=== PATIENT | female | born 1955 | race Caucasian/White ===

== ENCOUNTER 2018-07-26 21:04 | Emergency (ER) | payer MEDICAID ==
[2018-07-26 21:27] LABS: BILIRUBIN,URINE NEGATIVE (NEGATIVE); GLUCOSE, URINE (UA) NEGATIVE (NEGATIVE); KETONES,URINE (UA) NEGATIVE (NEGATIVE); LEUKOCYTE ESTERASE, URINE SMALL (NEGATIVE); NITRITE,URINE NEGATIVE (NEGATIVE); OCCULT BLOOD,URINE LARGE (NEGATIVE); PH,URINE 6.5 PH (5.0-7.5); PROTEIN,URINE 100 mg/dL (NEGATIVE); UROBILINOGEN,URINE 0.2 (NORMAL) E.U./dL (NORMAL)
[2018-07-26 21:35] LABS: BACTERIA,URINE None Seen /HPF (None Seen); CLARITY,URINE HAZY (CLEAR); RBC,URINE 0-5 /HPF (0-5); SQUAMOUS EPITHELIAL CELL,UR NONE SEEN (<= Few)
[2018-07-26] MEDS ORDERED: cephALEXin 250 MG CAPSULE PO STA (22:10)
--- NOTE | 2018-07-26 22:13 | ED Physician Documentation ---
History of Present Illness - Stated complaint Stated Complaint: FEMALE - Chief complaint Chief Complaint: UTI - Additonal information Additional information: 63-year-old female presents the emergency department with dysuria and hematuria. No fevers or chills. No flank pain. Symptoms are described as moderate. The patient reports frequency and suprapubic cramping. No triggering factors. No relieving factors. 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 HEENT: Tonsil/Adenoidectomy - Present Medications Home Medications: Ambulatory Orders Medication Instructions Recorded Confirmed Cephalexin [Keflex] 500 mg PO BID #14 capsule 07/26/18 - Allergies Allergies/Adverse Reactions: Allergies Allergy/AdvReac Type Severity Reaction Status Date / Time Sulfa (Sulfonamide Allergy Unknown Verified 07/26/18 21:24 Antibiotics) - Social History Does the pt smoke?: No Smoking Status: Never smoker Does the pt drink ETOH?: No Does the pt have substance abuse?: No - Immunizations Immunizations are current?: Yes - POLST Patient has POLST: No PD ED PE NORMAL - General General: Alert and oriented X 3, No acute distress - HEENT HEENT: Atraumatic, PERRL, EOMI - Cardiac Cardiac: RRR, Strong equal pulses - Respiratory Respiratory: No respiratory distress - Back Back: No CVA TTP - Neuro Neuro: Alert and oriented X 3, Normal speech Results - Vitals Vitals: Vital Signs - 24 hr 07/26/18 21:21 Temperature 36.6 C Heart Rate 69 Respiratory 17 Rate Blood Pressure 168/67 H O2 Saturation 96 Oxygen O2 Source Room air - Labs Labs: Laboratory Tests 07/26/18 21:23 Urine Color LT RED Urine Clarity HAZY Urine pH 6.5 Ur Specific [place] <=1.005 Urine Protein 100 H Urine Glucose (UA) NEGATIVE Urine Ketones NEGATIVE Urine Occult Blood LARGE H Urine Nitrite NEGATIVE Urine Bilirubin NEGATIVE Urine Urobilinogen 0.2 (NORMAL) Ur Leukocyte Esterase SMALL H Urine RBC 0-5 Urine WBC >25 H Ur Squamous Epith Cells NONE SEEN Urine Bacteria None Seen Ur Microscopic Review INDICATED Urine Culture Comments INDICATED PD MEDICAL DECISION MAKING - ED course ED course: The patient appears to have a simple urinary tract infection, there is no evidence of pyelonephritis at this point. The patient appears appropriate for outpatient management with oral antibiotics. I discussed the plan with the p atient who understands and agrees. I discussed warning signs and recommended returning to the emergency department for any worsening or any concerns. Departure - Departure Disposition: Home, Self Care Clinical Impression: Acute cystitis Qualifiers: Hematuria presence: with hematuria Qualified Code(s): N30.01 - Acute cystitis with hematuria Condition: Good Instructions: ED UTI Cystitis Female, ED Infec Bladder Female Follow-Up: [facility] [Provider Group] (call to schedule a follow up appointment ) Prescriptions: Cephalexin [Keflex] 500 mg PO BID #14 capsule Comments: Please return to the emergency department for worsening symptoms or any concerns
[2018-07-26 22:18] VITALS: BP 150/68
== END 2018-07-26 22:17 | disposition home or self-care (01) ==
LOC: ED 21:04
DX: N30.01 Acute cystitis with hematuria (principal)
CPT/HCPCS: 81001; 87086; 99283; A9270; 81003

== ENCOUNTER 2018-08-12 18:27 | Emergency (ER) | payer MEDICAID ==
--- NOTE | 2018-08-12 20:12 | ED Physician Documentation ---
PD HPI DYSPNEA - Stated complaint Stated Complaint: COUGH/SOA - Chief complaint Chief Complaint: Resp - History obtained from History obtained from: Patient - History of Present Illness Timing - onset: How many days ago (2) Timing - details: Gradual onset, Intermittant, Waxing and waning Pain level now: 1 Improved by: Sitting up Worsened by: Laying flat, Coughing Associated symptoms: Cough. No: Fever, Hemoptysis, Wheezing, Chest pain / discomfort, Bilateral edema, Unilateral edema Recently seen: Emergency Dept - Additional information Additional information: T+R few weeks ago for UTI; at that time, she had recently finished z-pack that had been prescribed at an urgent care clinic for URI. On previous ED visit few weeks ago, she was prescribed keflex for UTI. Patient presents at this time due to recurrence of the symptoms she had approximately 1 month ago: cough (intermittently productive of clear, white sputum) that is worse when lying supine. Also has dyspnea (with coughing) and bilaterally sinus congestion. Symptoms returned 2 days ago Review of Systems Nose: reports: Congestion, Sinus pressure / pain Throat: reports: Sore throat Cardiac: reports: Reviewed and negative Respiratory: reports: Dyspnea, Cough. 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 HEENT: Tonsil/Adenoidectomy - Present Medications Home Medications: Ambulatory Orders Medication Instructions Recorded Confirmed Aspirin EC [Ecotrin] 08/12/18 08/12/18 Benzonatate 200 mg PO TID PRN #20 capsule 08/12/18 Hydroxychloroquine [Plaquenil] 08/12/18 Levothyroxine [Synthroid] 08/12/18 Losartan/Hydrochlorothiazide 08/12/18 08/12/18 [Losartan-Hctz 100-12.5 mg Tab] Omeprazole Magnesium [Prilosec] 08/12/18 amLODIPine [Norvasc] 08/12/18 predniSONE [Prednisone] 40 mg PO DAILY #6 tablet 08/12/18 - Allergies Allergies/Adverse Reactions: Allergies Allergy/AdvReac Type Severity Reaction Status Date / Time Sulfa (Sulfonamide Allergy Unknown Verified 07/26/18 21:24 Antibiotics) - Social History Does the pt smoke?: No Smoking Status: Never smoker Does the pt drink ETOH?: No Does the pt have substance abuse?: No - Immunizations Immunizations are current?: Yes - POLST Patient has POLST: No PD ED PE NORMAL - Vitals Vital signs reviewed: Yes - General General: Alert and oriented X 3, No acute distress (frequent coughing during H+P), Well developed/nourished - HEENT HEENT: Moist mucous membranes, Pharynx benign - Neck Neck: Supple, no meningeal sign - Cardiac Cardiac: RRR, No murmur - Respiratory Respiratory: No respiratory distress, Other (bilateral course expiratory breath sounds) Results - Vitals Vitals: Vital Signs - 24 hr 08/12/18 08/12/18 08/12/18 18:43 20:47 21:39 Temperature 37.1 C Heart Rate 73 79 66 Respiratory 16 19 Rate Blood Pressure 137/55 H 132/74 H O2 Saturation 97 97 Oxygen O2 Source Room air - Rads (name of study) chest xray Radiology: Prelim report reviewed, See rad report PD MEDICAL DECISION MAKING - ED course Complexity details: reviewed results, re-evaluated patient, considered differential, d/w patient ED course: patient reported improvement after duoneb and lungs have improved aeration with mild residual bilateral course expiratory breath sounds Departure - Departure Disposition: 01 Home, Self Care Clinical Impression: Bronchitis, acute, with bronchospasm Condition: Good Instructions: ED Bronchitis Asthmatic Follow-Up: [facility] [Provider Group] [facility] [Provider Group] Prescriptions: Benzonatate 200 mg PO TID PRN #20 capsule PRN Reason: Cough predniSONE [Prednisone] 40 mg PO DAILY #6 tablet Discharge Date/Time: 08/12/18 21:40
[2018-08-12] MEDS ORDERED: BENZONATATE 100 MG CAPSULE PO STA (20:31)
[2018-08-12] MEDS ORDERED: predniSONE 20 MG TABLET PO STA (20:31)
[2018-08-12] MEDS ORDERED: IPRATROPIUM/ALBUTEROL 3 ML NEB INH STA (20:31)
--- NOTE | 2018-08-12 20:38 | XRAY Report ---
Reason: cough x1 month Procedure Date: 08/12/2018 Accession Number: [id number] / [id number] Procedure: XR - Chest 2 View X-Ray CPT Code: 73379 FULL RESULT: EXAM: CHEST RADIOGRAPHY EXAM DATE: 08/12/2018 07:53 PM. CLINICAL HISTORY: Cough. COMPARISON: None. TECHNIQUE: 2 views. FINDINGS: Lungs/Pleura: No focal opacities evident. No pleural effusion. No pneumothorax. Normal volumes. Mediastinum: Heart and mediastinal contours are unremarkable. Other: None. IMPRESSION: Normal 2-view chest radiography. RADIA
[2018-08-12 21:40] VITALS: BP 132/74
== END 2018-08-12 21:40 | disposition home or self-care (01) ==
LOC: ED 18:27
DX: J20.9 Acute bronchitis, unspecified (principal); I10 Essential (primary) hypertension; E03.9 Hypothyroidism, unspecified
CPT/HCPCS: 71046; 94640; 94664; 99283; A9270; J7512

== ENCOUNTER 2018-08-18 10:54 | Emergency (ER) | payer MEDICAID ==
[2018-08-18] MEDS ORDERED: SODIUM CHLORIDE 0.9% 1,000 ML IV ONE (11:14)
[2018-08-18 11:30] LABS: BILIRUBIN,URINE NEGATIVE (NEGATIVE); GLUCOSE, URINE (UA) NEGATIVE (NEGATIVE); KETONES,URINE (UA) NEGATIVE (NEGATIVE); LEUKOCYTE ESTERASE, URINE MODERATE (NEGATIVE); NITRITE,URINE NEGATIVE (NEGATIVE); OCCULT BLOOD,URINE LARGE (NEGATIVE); PROTEIN,URINE 100 mg/dL (NEGATIVE); UROBILINOGEN,URINE 0.2 (NORMAL) E.U./dL (NORMAL)
[2018-08-18] MEDS ORDERED: KETOROLAC 60 MG/2 ML VIAL IVP STA (11:33)
[2018-08-18 11:34] LABS: CLARITY,URINE SL. CLOUDY (CLEAR)
--- NOTE | 2018-08-18 11:36 | ED Physician Documentation ---
History of Present Illness - Stated complaint Stated Complaint: DIARRHEA - Chief complaint Chief Complaint: Abd Pain - Additonal information Additional information: hx from pt 63 f to ER with urinary sx and R flank pain nausea worsening for 4 days had UTI 3 wk ago txed with keflex no fever chills but feels generally ill has lupus on plaquinol and prednisone Review of Systems Constitutional: reports: Fatigue. denies: Fever, Chills Cardiac: denies: Chest pain / pressure Respiratory: denies: Dyspnea, Cough GI: reports: Abdominal Pain, Nausea. 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 HEENT: Tonsil/Adenoidectomy - Present Medications Home Medications: Ambulatory Orders Medication Instructions Recorded Confirmed Aspirin EC [Ecotrin] 08/12/18 08/12/18 Benzonatate 200 mg PO TID PRN #20 capsule 08/12/18 Hydroxychloroquine [Plaquenil] 08/12/18 Levothyroxine [Synthroid] 08/12/18 Losartan/Hydrochlorothiazide 08/12/18 08/12/18 [Losartan-Hctz 100-12.5 mg Tab] Omeprazole Magnesium [Prilosec] 08/12/18 amLODIPine [Norvasc] 08/12/18 Cephalexin [Keflex] 500 mg PO Q6H #40 capsule 08/18/18 Ibuprofen [Motrin] 400 mg PO Q6H PRN #20 tablet 08/18/18 Ondansetron Odt [Zofran] 4 mg TL Q6H PRN #10 tablet 08/18/18 - Allergies Allergies/Adverse Reactions: Allergies Allergy/AdvReac Type Severity Reaction Status Date / Time Sulfa (Sulfonamide Allergy Unknown Verified 08/18/18 11:06 Antibiotics) - Social History Does the pt smoke?: No Smoking Status: Never smoker Does the pt drink ETOH?: No Does the pt have substance abuse?: No - Immunizations Immunizations are current?: Yes - POLST Patient has POLST: No PD ED PE NORMAL - Vitals Vital signs reviewed: Yes - General General: Alert and oriented X 3 - HEENT HEENT: PERRL - Neck Neck: Supple, no meningeal sign - Cardiac Cardiac: RRR - Respiratory Respiratory: No respiratory distress, Clear bilaterally - Abdomen Abdomen: Soft, Other (mod TTP entire right abd s rebound or guarding) - Back Back: No CVA TTP (R CVA TTP) - Derm Derm: Normal color - Neuro Neuro: Alert and oriented X 3 Results - Vitals Vitals: Vital Signs - 24 hr 08/18/18 08/18/18 11:00 13:54 Temperature 36.8 C 36.6 C Heart Rate 77 58 L Respiratory 16 16 Rate Blood Pressure 166/76 H 133/65 H O2 Saturation 96 98 Oxygen O2 Source Room air - Labs Labs: Laboratory Tests 08/18/18 08/18/18 08/18/18 11:25 11:40 11:40 WBC 10.2 RBC 4.35 Hgb 13.1 Hct 37.8 MCV 86.9 MCH 30.1 MCHC 34.7 RDW 13.5 Plt Count 282 MPV 8.5 Neut # (Auto) 7.2 H Lymph # (Auto) 1.8 Edmunds # (Auto) 0.9 Eos # (Auto) 0.2 Baso # (Auto) 0.1 Absolute Nucleated RBC 0.01 Nucleated RBC % 0.1 Sodium 139 Potassium 3.2 L Chloride 103 Carbon Dioxide 27 Anion Gap 9.0 BUN 18 Creatinine 0.7 Estimated GFR (MDRD) 85 L Glucose 115 H Calcium 8.7 Total Bilirubin 1.4 H AST 15 ALT 19 Alkaline Phosphatase 61 Total Protein 6.5 L Albumin 3.7 Globulin 2.8 Albumin/Globulin Ratio 1.3 Lipase 24 Urine Color YELLOW Urine Clarity SL. CLOUDY Urine pH 6.0 Ur Specific [place] >=1.030 H Urine Protein 100 H Urine Glucose (UA) NEGATIVE Urine Ketones NEGATIVE Urine Occult Blood LARGE H Urine Nitrite NEGATIVE Urine Bilirubin NEGATIVE Urine Urobilinogen 0.2 (NORMAL) Ur Leukocyte Esterase MODERATE H Urine RBC 11-25 H Urine WBC >25 H Ur Squamous Epith Cells FEW Squamous Urine Bacteria Few Ur Microscopic Review INDICATED Urine Culture Comments INDICATED - Rads (name of study) CT AP Radiology: See rad report (no stones, subtle fat stranding without any acute infection or inflammatory source, no AAA, no CBD stones or dilation per rad read) PD MEDICAL DECISION MAKING - ED course ED course: hematuria + infection so got CT - no stones bili noted but pt s/p carrie and no CBD stones noted will tx for pyelo Departure - Departure Disposition: 01 Home, Self Care Clinical Impression: Pyelonephritis Condition: Good Instructions: ED Kidney Infec Female Prescriptions: Cephalexin [Keflex] 500 mg PO Q6H #40 capsule Ibuprofen [Motrin] 400 mg PO Q6H PRN #20 tablet PRN Reason: Pain Ondansetron Odt [Zofran] 4 mg TL Q6H PRN #10 tablet PRN Reason: Nausea / Vomiting Comments: The CT scan did not show any kidney stones or other acute process. The urine test definitely indicates an infection. We gave you a dose of IV antibiotics in the ER and I have prescribed keflex again since that worked for you before. A urine culture will be run and you will be called if it indicates different antibiotics are needed Discharge Date/Time: 08/18/18 14:17
[2018-08-18 11:41] LABS: BACTERIA,URINE Few /HPF (None Seen); SQUAMOUS EPITHELIAL CELL,UR FEW Squamous (<= Few)
[2018-08-18 11:54] LABS: BASOPHILS # (AUTO) 0.1 10^3/uL (0.0-0.1); BASOPHILS % (AUTO) 0.8 %; EOSINOPHILS # (AUTO) 0.2 10^3/uL (0.0-0.7); EOSINOPHILS % (AUTO) 1.9 %; HGB - HEMOGLOBIN 13.1 g/dL (12.0-16.0); LYMPHOCYTES # (AUTO) 1.8 10^3/uL (1.5-3.5); LYMPHOCYTES % (AUTO) 17.9 %; MEAN CORPUSCULAR HEMOGLOBIN 30.1 pg (27.0-31.0); MEAN CORPUSCULAR HGB CONC 34.7 g/dL (32.0-36.0); MEAN CORPUSCULAR VOLUME 86.9 fL (81.0-99.0); MEAN PLATELET VOLUME 8.5 fL (7.9-10.8); MONOCYTES # (AUTO) 0.9 10^3/uL (0.0-1.0); MONOCYTES % (AUTO) 8.4 %; NEUTROPHILS # (AUTO) 7.2 10^3/uL (1.5-6.6); PLT - PLATELET COUNT 282 10^3/uL (130-450); RED BLOOD COUNT 4.35 10^6/uL (4.20-5.40); RED CELL DISTRIBUTION WIDTH 13.5 % (12.0-15.0); WHITE BLOOD COUNT 10.2 x10^3/uL (4.8-10.8)
[2018-08-18 12:07] LABS: ALBUMIN 3.7 g/dL (3.2-5.5); ALBUMIN/GLOBULIN RATIO 1.3 (1.0-2.2); BILIRUBIN,TOTAL 1.4 mg/dL (0.2-1.0); CALCIUM 8.7 mg/dL (8.5-10.3); CREATININE 0.7 mg/dL (0.4-1.0); TOTAL PROTEIN 6.5 g/dL (6.7-8.2)
--- NOTE | 2018-08-18 12:07 | CT Report ---
Reason: right flank pain Procedure Date: 08/18/2018 Accession Number: [id number] / [id number] Procedure: CT - Abdomen/Pelvis W/O CPT Code: FULL RESULT: EXAM: CT ABDOMEN AND PELVIS EXAM DATE: 08/18/2018 11:52 AM. CLINICAL HISTORY: Right flank pain. COMPARISONS: None. TECHNIQUE: Routine helical CT imaging was performed through the abdomen and pelvis. IV contrast: None. Enteric contrast: No. Reconstructions: Coronal and sagittal. In accordance with CT protocol optimization, one or more of the following dose reduction techniques were utilized for this exam: automated exposure control, adjustment of mA and/or KV based on patient size, or use of iterative reconstructive technique. FINDINGS: Lung Bases: Unremarkable. Liver: Normal. No masses. Gallbladder/Bile Ducts: Status post cholecystectomy. Spleen: Normal. Pancreas: Normal. Adrenal Glands: Normal. Kidneys: Normal. No masses or hydronephrosis. Peritoneal Cavity/Bowel: There is subtle peritoneal fat stranding surrounding the mesentery, more so on the right as well as in the distribution of the pancreas head without focal findings. There is diverticulosis without diverticulitis. A density seen in the region of the second portion of the duodenum/biliary sphincter is felt to be within the small bowel rather than solar manufacturer's representative of choledocholithiasis. No benjamín free fluid, free air or adenopathy. No masses or acute inflammatory process. Pelvic Organs: Normal. The bladder and visualized pelvic organs are within normal limits. Vasculature: Atherosclerosis without abdominal aneurysm. Bones: No aggressive osseous lesions. Other: None. IMPRESSION: Subtle peritoneal fat stranding is a nonspecific finding, possibly self-limited mesenteritis. RADIA
[2018-08-18] MEDS ORDERED: cefTRIAXone 1 GM in SODIUM CHLORIDE 0.9% MINIBAG 100 ML IV STA (13:12)
[2018-08-18 13:56] VITALS: BP 133/65
== END 2018-08-18 14:17 | disposition home or self-care (01) ==
LOC: ED 10:54
DX: N12 Tubulo-interstitial nephritis, not specified as acute or chronic (principal); E03.9 Hypothyroidism, unspecified
CPT/HCPCS: 36415; 74176; 80053; 81001; 81003; 83690; 85025; 87077; 87086; 87181; 96361; 96365; 96375; 99283; 99284

== ENCOUNTER 2018-08-31 10:56 | Outpatient (CLI) | payer MEDICAID ==
[2018-08-31 11:43] LABS: BASOPHILS # (AUTO) 0.1 10^3/uL (0.0-0.1); BASOPHILS % (AUTO) 0.9 %; EOSINOPHILS # (AUTO) 0.1 10^3/uL (0.0-0.7); HGB - HEMOGLOBIN 13.1 g/dL (12.0-16.0); LYMPHOCYTES % (AUTO) 32.9 %; MEAN CORPUSCULAR HEMOGLOBIN 29.8 pg (27.0-31.0); MEAN CORPUSCULAR HGB CONC 34.3 g/dL (32.0-36.0); MEAN CORPUSCULAR VOLUME 87.1 fL (81.0-99.0); MONOCYTES # (AUTO) 0.5 10^3/uL (0.0-1.0); MONOCYTES % (AUTO) 8.8 %; NEUTROPHILS # (AUTO) 3.4 10^3/uL (1.5-6.6); NEUTROPHILS % (AUTO) 55.4 %; PLT - PLATELET COUNT 244 10^3/uL (130-450); RED CELL DISTRIBUTION WIDTH 13.5 % (12.0-15.0); WHITE BLOOD COUNT 6.2 x10^3/uL (4.8-10.8)
[2018-08-31 11:58] LABS: BILIRUBIN,URINE NEGATIVE (NEGATIVE); GLUCOSE, URINE (UA) NEGATIVE (NEGATIVE); KETONES,URINE (UA) NEGATIVE (NEGATIVE); LEUKOCYTE ESTERASE, URINE TRACE (NEGATIVE); NITRITE,URINE NEGATIVE (NEGATIVE); OCCULT BLOOD,URINE SMALL (NEGATIVE); PH,URINE 5.5 PH (5.0-7.5); PROTEIN,URINE 30 mg/dL (NEGATIVE); UROBILINOGEN,URINE 0.2 (NORMAL) E.U./dL (NORMAL)
[2018-08-31 11:59] LABS: CLARITY,URINE CLEAR (CLEAR)
[2018-08-31 12:09] LABS: BACTERIA,URINE Few /HPF (None Seen); RBC,URINE 0-5 /HPF (0-5); SQUAMOUS EPITHELIAL CELL,UR FEW Squamous (<= Few)
[2018-08-31 12:17] LABS: ALBUMIN 3.8 g/dL (3.2-5.5); ALBUMIN/GLOBULIN RATIO 1.3 (1.0-2.2); ALKALINE PHOSPHATASE 59 IU/L (42-121); ALT ALANINE AMINOTRANSFERASE 18 IU/L (10-60); AST ASPARTATE AMINOTRANSFERASE 17 IU/L (10-42); BILIRUBIN,TOTAL 1.3 mg/dL (0.2-1.0); BUN - BLOOD UREA NITROGEN 12 mg/dL (6-20); CALCIUM 9.1 mg/dL (8.5-10.3); CARBON DIOXIDE - CO2 29 mmol/L (21-32); CHLORIDE 102 mmol/L (101-111); CHOL/HDL RATIO 4.9 (<4.4); CHOLESTEROL 199 mg/dL; CREATININE 0.6 mg/dL (0.4-1.0); GFR - MDRD 102 (>89); GLUCOSE 103 mg/dL (70-100); HDL CHOLESTEROL 41 mg/dL; LDL CHOLESTEROL,CALCULATED 133 mg/dL; LDL/HDL RATIO 3.2 (<4.4); SODIUM 137 mmol/L (135-145); TOTAL PROTEIN 6.7 g/dL (6.7-8.2); VLDL CHOLESTEROL 25 mg/dL
[2018-08-31 12:35] LABS: HB2 TOTAL 14.1 g/dL; HEMOGLOBIN A1C 0.51 g/dL; HEMOGLOBIN A1C % 5.5 % (4.6-6.2)
[2018-08-31 12:53] LABS: THYROID STIMULATING HORMONE 0.6 uIU/mL (0.34-5.60)
== END 2018-08-31 10:57 | disposition home or self-care (01) ==
LOC: LAB 10:56
PROVIDERS: ATTEND Nurse Practitioner
DX: E87.6 Hypokalemia (principal); I10 Essential (primary) hypertension; R30.0 Dysuria; Z12.11 Encounter for screening for malignant neoplasm of colon; E55.9 Vitamin D deficiency, unspecified; R53.83 Other fatigue; R73.9 Hyperglycemia, unspecified; E03.9 Hypothyroidism, unspecified
CPT/HCPCS: 36415; 80050; 80061; 81001; 82306; 82607; 82747; 83036; 83721; 87086

== ENCOUNTER 2018-09-06 08:00 | Outpatient (CLI) | payer MEDICAID | END 2018-09-06 23:59 | LOC: LAB.N 08:00 | PROVIDERS: ATTEND Nurse Practitioner | DX: Z12.11 Encounter for screening for malignant neoplasm of colon (principal) | CPT/HCPCS: 82274 ==

== ENCOUNTER 2018-09-28 15:20 | Outpatient (CLI) | payer MEDICAID | END 2018-09-28 15:21 | disposition home or self-care (01) | LOC: DI 15:20 | PROVIDERS: ATTEND Nurse Practitioner | DX: Z12.31 Encounter for screening mammogram for malignant neoplasm of breast (principal) | CPT/HCPCS: 77063; 77067 ==

== ENCOUNTER 2018-10-06 11:30 | Outpatient (CLI) | payer MEDICAID ==
--- NOTE | 2018-10-06 16:39 | XRAY Report ---
Reason: UPPER RESPIRATORY INFECTION Procedure Date: 10/06/2018 Accession Number: [id number] / [id number] Procedure: XRN - Chest 2 View X-Ray CPT Code: 05337 FULL RESULT: EXAM: CHEST RADIOGRAPHY EXAM DATE: 10/06/2018 11:58 AM. CLINICAL HISTORY: Cough. COMPARISON: Chest 2 view 08/12/2018 7:38 PM. TECHNIQUE: 2 views. FINDINGS: Lungs/Pleura: No focal opacities evident. No pleural effusion. No pneumothorax. Normal volumes. Mediastinum: Heart and mediastinal contours are unremarkable. Other: None. IMPRESSION: Normal 2-view chest radiography. RADIA
== END 2018-10-06 11:31 | disposition home or self-care (01) ==
LOC: DI.N 11:30
PROVIDERS: ATTEND Nurse Practitioner
DX: J06.9 Acute upper respiratory infection, unspecified (principal)
CPT/HCPCS: 71046

== ENCOUNTER 2018-12-12 14:32 | Outpatient (CLI) | payer MEDICAID | END 2018-12-12 14:33 | disposition home or self-care (01) | LOC: SC 14:32 | PROVIDERS: ATTEND Internal Medicine Pulmonary Disease | DX: G47.33 Obstructive sleep apnea (adult) (pediatric) (principal); E66.01 Morbid (severe) obesity due to excess calories; Z68.42 Body mass index [BMI] 45.0-49.9, adult; Z87.891 Personal history of nicotine dependence | CPT/HCPCS: 99203; 99212 ==

== ENCOUNTER 2019-01-06 20:44 | Outpatient (CLI) | payer MEDICAID | END 2019-01-06 20:45 | disposition home or self-care (01) | LOC: SC 20:44 | PROVIDERS: ATTEND Internal Medicine Pulmonary Disease | DX: G47.33 Obstructive sleep apnea (adult) (pediatric) (principal); G47.61 Periodic limb movement disorder; I47.1 Supraventricular tachycardia | CPT/HCPCS: 95811 ==

== ENCOUNTER 2019-02-09 09:17 | Outpatient (CLI) | payer MEDICAID | END 2019-02-09 09:18 | disposition home or self-care (01) | LOC: SC 09:17 | PROVIDERS: ATTEND Nurse Practitioner Family | DX: G47.33 Obstructive sleep apnea (adult) (pediatric) (principal) | CPT/HCPCS: 99212; 99215 ==

== ENCOUNTER 2019-04-03 15:48 | Outpatient (CLI) | payer MEDICAID | END 2019-04-03 15:49 | disposition home or self-care (01) | LOC: SC 15:48 | PROVIDERS: ATTEND Nurse Practitioner Family | DX: G47.33 Obstructive sleep apnea (adult) (pediatric) (principal) | CPT/HCPCS: 99212; 99214 ==

== ENCOUNTER 2019-04-24 18:39 | Outpatient (CLI) | payer MEDICAID ==
--- NOTE | 2019-04-26 11:25 | XRAY Report ---
Reason: LUMBAGO Procedure Date: 04/24/2019 Accession Number: [id number] / [id number] Procedure: XR - Lumbar Spine 2 View CPT Code: FULL RESULT: EXAM: LUMBOSACRAL SPINE RADIOGRAPHY EXAM DATE: 04/24/2019 07:19 PM. CLINICAL HISTORY: Lumbago. COMPARISONS: None. TECHNIQUE: 2 views. FINDINGS: Alignment: There is a mild 9 degrees dextroconvex lumbar scoliosis. No listhesis. Bones: Five [id number] lumbar vertebral bodies are present. The bones are qualitatively osteopenic; this limits evaluation for underlying fractures or masses. No fractures or bone lesions. Disks: Normal. Disk heights are maintained. Facets: There is at least moderate facet arthropathy at L3, L4 and L5, evaluation somewhat limited by motion on the lateral view. Sacroiliac Joints: Unremarkable. Soft Tissues: Aortic calcifications are noted. IMPRESSION: Facet predominant degenerative changes as described. RADIA
--- NOTE | 2019-04-26 11:25 | XRAY Report ---
Reason: LUMBAGO Procedure Date: 04/24/2019 Accession Number: [id number] / [id number] Procedure: XR - Sacrum/Coccyx CPT Code: FULL RESULT: EXAM: SACRUM AND COCCYX RADIOGRAPHY EXAM DATE: 04/24/2019 07:19 PM. HISTORY: Lumbago. COMPARISONS: None. TECHNIQUE: 2 views. FINDINGS: Alignment: Normal. The sacrum and coccyx are normally aligned. Bones: The bones are qualitatively osteopenic; this limits evaluation for underlying fractures or masses. No fracture is detected. Joints: Normal. The sacroiliac joints and visualized hips are within normal limits. Soft Tissues: Unremarkable. IMPRESSION: Normal sacrum and coccyx radiography. RADIA
== END 2019-04-24 18:40 | disposition home or self-care (01) ==
LOC: DI 18:39
PROVIDERS: ATTEND Nurse Practitioner Gerontology
DX: M47.816 Spondylosis without myelopathy or radiculopathy, lumbar region (principal)
CPT/HCPCS: 72100; 72220

== ENCOUNTER 2019-05-29 08:00 | Outpatient (CLI) | payer MEDICAID ==
[2019-05-29 19:04] LABS: BASOPHILS % (AUTO) 0.7 %; EOSINOPHILS # (AUTO) 0.1 10^3/uL (0.0-0.7); EOSINOPHILS % (AUTO) 2.2 %; HGB - HEMOGLOBIN 11.9 g/dL (12.0-16.0); LYMPHOCYTES # (AUTO) 1.5 10^3/uL (1.5-3.5); LYMPHOCYTES % (AUTO) 25.2 %; MEAN CORPUSCULAR HEMOGLOBIN 28.8 pg (27.0-31.0); MEAN CORPUSCULAR HGB CONC 31.7 g/dL (32.0-36.0); MEAN CORPUSCULAR VOLUME 90.8 fL (81.0-99.0); MEAN PLATELET VOLUME 11.1 fL (7.9-10.8); MONOCYTES # (AUTO) 0.4 10^3/uL (0.0-1.0); MONOCYTES % (AUTO) 6.8 %; NEUTROPHILS # (AUTO) 3.9 10^3/uL (1.5-6.6); NEUTROPHILS % (AUTO) 64.9 %; PLT - PLATELET COUNT 294 10^3/uL (130-450); RED BLOOD COUNT 4.13 10^6/uL (4.20-5.40)
[2019-05-29 19:27] LABS: ALBUMIN 3.6 g/dL (3.2-5.5); ALBUMIN/GLOBULIN RATIO 1.2 (1.0-2.2); ALKALINE PHOSPHATASE 55 IU/L (42-121); ALT ALANINE AMINOTRANSFERASE 27 IU/L (10-60); AST ASPARTATE AMINOTRANSFERASE 19 IU/L (10-42); BILIRUBIN,TOTAL 0.6 mg/dL (0.2-1.0); BUN - BLOOD UREA NITROGEN 15 mg/dL (6-20); CALCIUM 8.6 mg/dL (8.5-10.3); CARBON DIOXIDE - CO2 26 mmol/L (21-32); CHLORIDE 104 mmol/L (101-111); CHOL/HDL RATIO 4.7 (<4.4); CHOLESTEROL 200 mg/dL; CREATININE 0.5 mg/dL (0.4-1.0); GFR - MDRD 125 (>89); GLUCOSE 100 mg/dL (70-100); HDL CHOLESTEROL 43 mg/dL; LDL CHOLESTEROL,CALCULATED 128 mg/dL; SODIUM 139 mmol/L (135-145); TOTAL PROTEIN 6.6 g/dL (6.7-8.2); VLDL CHOLESTEROL 29 mg/dL
== END 2019-05-29 23:59 | disposition home or self-care (01) ==
LOC: LAB.N 08:00
PROVIDERS: ATTEND Nurse Practitioner Gerontology
DX: E87.6 Hypokalemia (principal); E03.9 Hypothyroidism, unspecified; I10 Essential (primary) hypertension
CPT/HCPCS: 36415; 80050; 80061; 83721

== ENCOUNTER 2019-06-29 08:00 | Outpatient (CLI) | payer MEDICAID | END 2019-06-29 23:59 | disposition home or self-care (01) | LOC: LAB.R 08:00 | PROVIDERS: ATTEND Family Medicine | DX: N39.0 Urinary tract infection, site not specified (principal) | CPT/HCPCS: 87086 ==

== ENCOUNTER 2019-08-08 11:19 | Outpatient (CLI) | payer MEDICAID ==
[2019-08-08 12:28] VITALS: BP 134/64
--- NOTE | 2019-08-08 12:28 | SLEEP CARE CONSULTATION ---
Information from patient questionnaire entered by Lucia Garvey. I have reviewed and concur with the information entered by Lucia Garvey. This document represents the service I personally performed and the decisions made by me, Rosamaria Riggs RN, MSN, SPEECH SCIENTIST. History of Present Illness Previous diagnosis: Mild, Obstructive Sleep Apnea-Hypopnea Syndrome AHI: 12.2 Reason for follow up: other (2 month) Equipment type: CPAP Equipment obtained from: [employer] Mask style: Full face Mask brand: Respironics Backup mask available: Yes Last cushion change: 3 months ago Prior sleep studies: Yes HPI additional information: The pressure was changed for elevated residual and is comfortable. The mask irritation has resolved with kleenex barrier and working well. CPAP Compliance Data - Data Reviewed with Patient Average duration of nightly device use: 10h 46m Compliance rate %: 98.3 (patient watches TV in bed prior to CPAP with mask. ) Current pressure setting (cmH2O): 9 Humidity settin Heated hose settin Average residual AHI: 1.1 Average large leak: 5 seconds Subjective Patient concerns: reports: mask leak noise (occasional), nasal congestion (intermittent). denies: aerophagia, mask discomfort, air blowing in eyes, condensation in mask/hose, dry mouth, nose, throat, epistaxis Current pressure setting perceived as: comfortable On therapy, patient: denies: sleeping better, awakening more refreshed, being more awake and alert during the day, more rested overall, drowsiness while driving Initial Cedar Sleepiness Scale score: 5 Current Cedar Sleepiness Scale score: 5 Allergies and Home Medications Known drug allergies: Yes (sulfa) Home medication list reviewed: Yes Allergy and home medication list: Medication Name (generic/name brand) Strength & Dosage Furosemide 20mg tab one daily as needed Levothyroxine Sodium 112mcg tab one daily Amlodipine Besylate 5mg tab one daily Losartan Potassium 100mg tab one daily Hydroxychloroquine Sulfate 200mg tab one daily Potassium Chloride ER 10meq tab one daily as needed ProAir HFA 108 (90 base) mcg/act Use as directed, as needed Aller-Greg Tab one daily Omeprazole 20mg cap one daily Ecotrin 325mg tab as directed ibuprofen OTC prn Tylenol OTC prn Allergy List Sulfa Review of Systems Review of systems same as previous: No (had a cold) Physical Exam Blood Pressure: 134/64 Cuff size: long Heart Rate: 63 O2 Saturation: 98 Height: 5 ft 5.75 in Weight: 286 lb Weight change since last visit: gained 9 pounds Body Mass Index: 46.5 BMI Classification: Obesity Class 3 Impression and Plan 1. Obstructive Sleep Apnea-Hypopnea Syndrome, mild , with good treatment compliance and good apnea control. The new pressure reduced her residual to 1.1. On CPAP therapy, the patient has better sleep quality and is more rested overall. She was cautioned not to spend too much time in bed as it can affect sleep efficiency. She is aware sometimes she spends more time when things bothering her and sees a counselor. This has been a very stressful year and she reports that she has resources to assist her. She is aware of how often to get supplies. I also reviewed changing humidity with weather change and to reduce nasal congestion. Printed Respironics Web instructions given for reference. She is aware of her obesity and need to lose weight for overall health and is working on it. Patient's apnea severity and rationale for treatment to reduce apnea, improve sleep quality and reduce cardiovascular and cerebrovascular events was reviewed. I also reviewed the benefit of consistent device use of CPAP for hypertension, gastric reflux, depression/anxiety. * Continue CPAP pressure at 9 cmH2O * Reduce time in bed * Adjust humidity as directed. * Notify me if snoring with mask or feeling that the pressure is too much or too little * Attempt to lose weight * Return for follow up in 1 year , or sooner if concerns arise I spent 100% of this 20 minute visit face to face with the patient with greater than 50% of this was spent time counseling the patient and coordination of care.
== END 2019-08-08 11:20 | disposition home or self-care (01) ==
LOC: SC 11:19
PROVIDERS: ATTEND Nurse Practitioner Family
DX: G47.33 Obstructive sleep apnea (adult) (pediatric) (principal); E66.9 Obesity, unspecified; Z68.42 Body mass index [BMI] 45.0-49.9, adult
CPT/HCPCS: 99212; 99213

== ENCOUNTER 2020-06-04 10:00 | Outpatient (CLI) | payer MEDICAID ==
[2020-06-04 11:41] LABS: BASOPHILS # (AUTO) 0.1 10^3/uL (0.0-0.1); BASOPHILS % (AUTO) 0.7 %; EOSINOPHILS # (AUTO) 0.2 10^3/uL (0.0-0.7); EOSINOPHILS % (AUTO) 2.6 %; HGB - HEMOGLOBIN 12.2 g/dL (12.0-16.0); LYMPHOCYTES # (AUTO) 2.1 10^3/uL (1.5-3.5); LYMPHOCYTES % (AUTO) 30.6 %; MEAN CORPUSCULAR HGB CONC 33.2 g/dL (32.0-36.0); MEAN CORPUSCULAR VOLUME 90.6 fL (81.0-99.0); MONOCYTES # (AUTO) 0.6 10^3/uL (0.0-1.0); MONOCYTES % (AUTO) 8.7 %; NEUTROPHILS % (AUTO) 56.8 %; PLT - PLATELET COUNT 284 10^3/uL (130-450); RED BLOOD COUNT 4.06 10^6/uL (4.20-5.40); RED CELL DISTRIBUTION WIDTH 12.1 % (12.0-15.0)
[2020-06-04 12:10] LABS: ALBUMIN/GLOBULIN RATIO 1.4 (1.0-2.2); ALKALINE PHOSPHATASE 51 IU/L (42-121); ALT ALANINE AMINOTRANSFERASE 23 IU/L (10-60); AST ASPARTATE AMINOTRANSFERASE 18 IU/L (10-42); BUN - BLOOD UREA NITROGEN 23 mg/dL (6-20); CALCIUM 9.6 mg/dL (8.5-10.3); CARBON DIOXIDE - CO2 29 mmol/L (21-32); CHLORIDE 105 mmol/L (101-111); CHOLESTEROL 204 mg/dL; CREATININE 0.6 mg/dL (0.4-1.0); GLUCOSE 101 mg/dL (70-100); HDL CHOLESTEROL 41 mg/dL; LDL CHOLESTEROL,CALCULATED 115 mg/dL; LDL/HDL RATIO 2.8 (<4.4); SODIUM 141 mmol/L (135-145); TOTAL PROTEIN 6.9 g/dL (6.7-8.2); VLDL CHOLESTEROL 48 mg/dL
[2020-06-04 13:47] LABS: HEMOGLOBIN A1c% 5.5 % (4.27-6.07)
== END 2020-06-04 23:59 | disposition home or self-care (01) ==
LOC: LAB.WCP 10:00
PROVIDERS: ATTEND Physician Assistant
DX: E78.5 Hyperlipidemia, unspecified (principal); R73.9 Hyperglycemia, unspecified; E03.9 Hypothyroidism, unspecified
CPT/HCPCS: 36415; 80050; 80061; 83036; 83721

== ENCOUNTER 2020-06-13 18:44 | Outpatient (CLI) | payer MEDICAID | END 2020-06-13 18:45 | disposition home or self-care (01) | LOC: COV 18:44 | PROVIDERS: ATTEND Family Medicine | DX: R05 Cough (principal); M79.10 Myalgia, unspecified site; R53.83 Other fatigue; J02.9 Acute pharyngitis, unspecified; R09.81 Nasal congestion; Z20.828 Contact with and (suspected) exposure to other viral communicable diseases ==

== ENCOUNTER 2020-07-01 08:00 | Outpatient (CLI) | payer MEDICAID ==
[2020-07-01 18:05] LABS: BASOPHILS # (AUTO) 0.1 10^3/uL (0.0-0.1); BASOPHILS % (AUTO) 0.6 %; EOSINOPHILS # (AUTO) 0.1 10^3/uL (0.0-0.7); EOSINOPHILS % (AUTO) 1.4 %; LYMPHOCYTES # (AUTO) 1.9 10^3/uL (1.5-3.5); LYMPHOCYTES % (AUTO) 22.4 %; MEAN CORPUSCULAR HEMOGLOBIN 29.1 pg (27.0-31.0); MEAN CORPUSCULAR HGB CONC 32.1 g/dL (32.0-36.0); MEAN CORPUSCULAR VOLUME 90.6 fL (81.0-99.0); MONOCYTES # (AUTO) 0.7 10^3/uL (0.0-1.0); MONOCYTES % (AUTO) 8.8 %; NEUTROPHILS # (AUTO) 5.5 10^3/uL (1.5-6.6); NEUTROPHILS % (AUTO) 66.3 %; PLT - PLATELET COUNT 289 10^3/uL (130-450); RED BLOOD COUNT 4.13 10^6/uL (4.20-5.40); RED CELL DISTRIBUTION WIDTH 12.4 % (12.0-15.0); WHITE BLOOD COUNT 8.3 x10^3/uL (4.8-10.8)
[2020-07-01 18:52] LABS: % IRON SATURATION 12 % (20-50); IRON 39 ug/dL (28-170); TOTAL IRON BINDING CAPACITY 333 ug/dL (250-450); TRANSFERRIN 238 mg/dL (192-382)
== END 2020-07-01 23:59 | disposition home or self-care (01) ==
LOC: LAB.WCP 08:00
PROVIDERS: ATTEND Physician Assistant
DX: R68.89 Other general symptoms and signs (principal)
CPT/HCPCS: 36415; 82728; 83540; 84466; 85025

== ENCOUNTER 2020-07-23 10:02 | Outpatient (CLI) | payer MEDICAID | END 2020-07-23 10:03 | disposition home or self-care (01) | LOC: DI 10:02 | PROVIDERS: ATTEND Physician Assistant | DX: I10 Essential (primary) hypertension (principal); R60.0 Localized edema; I08.0 Rheumatic disorders of both mitral and aortic valves | CPT/HCPCS: 93306 ==

== ENCOUNTER 2020-09-23 13:33 | Outpatient (CLI) | payer MEDICAID ==
--- NOTE | 2020-09-23 16:57 | Ultrasound Report ---
PROCEDURE: Pelvic w/Transvaginal INDICATIONS: POST MENOPAUSAL BLEEDING TECHNIQUE: Real-time scanning was performed of the pelvic organs, with image documentation. Additional endovagi nal scanning was necessary due to incomplete visualization of the adnexal and endometrial structures by transabdominal scanning. COMPARISON: None. FINDINGS: Transabdominal scanning: Limited scanning through the kidneys shows no hydronephrosis. No pathologi c free abdominal or pelvic fluid. Endovaginal scanning: Uterus: Uterus is mildly enlarged in size at 11.9 x 7.6 x 6.4 cm. The endometrium measures 14 mm i n combined thickness. The endometrium overall has a heterogeneous appearance. Within the fundal ante rior portion there is a 5.3 x 5.1 x 5.5 cm focus of heterogeneous echogenicity. In the lower uterine segment posteriorly there is a 1.4 x 1.1 x 1.3 similar focus of heterogeneous echotexture echogenicit y with calcifications. Nabothian cysts are noted. Ovaries: The ovaries are not visualized. IMPRESSION: Prominent endometrium with focal fluid greater in thickness than expected for post menopausal with bl eeding. It is noted recent biopsy was negative. Uterine fibroids with portions causing mild displacement of the endometrium. Reviewed by: Isadora Matta MD on 09/23/2020 4:56 PM PST Approved by: Isadora Matta MD on 09/23/2020 4:56 PM PST Station ID: [id number]
== END 2020-09-23 13:34 | disposition home or self-care (01) ==
LOC: DI 13:33
PROVIDERS: ATTEND Obstetrics & Gynecology
DX: R93.89 Abnormal findings on diagnostic imaging of other specified body structures (principal); D25.9 Leiomyoma of uterus, unspecified; M32.9 Systemic lupus erythematosus, unspecified
CPT/HCPCS: 36415; 80053; 85025; 85651; 86140

== ENCOUNTER 2020-09-23 14:22 | Outpatient (CLI) | payer MEDICAID ==
[2020-09-23 15:15] LABS: BASOPHILS # (AUTO) 0.1 10^3/uL (0.0-0.1); BASOPHILS % (AUTO) 0.7 %; EOSINOPHILS # (AUTO) 0.2 10^3/uL (0.0-0.7); EOSINOPHILS % (AUTO) 2.3 %; HGB - HEMOGLOBIN 12.1 g/dL (12.0-16.0); LYMPHOCYTES # (AUTO) 1.9 10^3/uL (1.5-3.5); LYMPHOCYTES % (AUTO) 23.4 %; MEAN CORPUSCULAR HEMOGLOBIN 30.9 pg (27.0-31.0); MEAN CORPUSCULAR HGB CONC 34.5 g/dL (32.0-36.0); MEAN CORPUSCULAR VOLUME 89.8 fL (81.0-99.0); MEAN PLATELET VOLUME 10.3 fL (7.9-10.8); MONOCYTES # (AUTO) 0.7 10^3/uL (0.0-1.0); MONOCYTES % (AUTO) 8.3 %; NEUTROPHILS # (AUTO) 5.3 10^3/uL (1.5-6.6); NEUTROPHILS % (AUTO) 64.9 %; PLT - PLATELET COUNT 243 10^3/uL (130-450); RED BLOOD COUNT 3.91 10^6/uL (4.20-5.40); RED CELL DISTRIBUTION WIDTH 12.6 % (12.0-15.0); WHITE BLOOD COUNT 8.1 x10^3/uL (4.8-10.8)
[2020-09-23 15:32] LABS: ALBUMIN 3.8 g/dL (3.2-5.5); ALBUMIN/GLOBULIN RATIO 1.4 (1.0-2.2); BILIRUBIN,TOTAL 0.8 mg/dL (0.2-1.0); CALCIUM 9.5 mg/dL (8.5-10.3); CREATININE 0.8 mg/dL (0.4-1.0); CRP - C-REACTIVE PROTEIN 1.1 mg/dL (0-1.0); TOTAL PROTEIN 6.6 g/dL (6.7-8.2)
== END 2020-09-23 14:23 | disposition home or self-care (01) ==
LOC: LAB 14:22
PROVIDERS: ATTEND Physician Assistant Medical
DX: M32.9 Systemic lupus erythematosus, unspecified (principal)
CPT/HCPCS: 36415; 80053; 85025; 85651; 86140

== ENCOUNTER 2021-02-19 11:37 | Outpatient (CLI) | payer MEDICAID ==
[2021-02-19 18:01] LABS: BASOPHILS # (AUTO) 0.1 10^3/uL (0.0-0.1); BASOPHILS % (AUTO) 0.7 %; EOSINOPHILS # (AUTO) 0.4 10^3/uL (0.0-0.7); EOSINOPHILS % (AUTO) 4.8 %; HGB - HEMOGLOBIN 12.2 g/dL (12.0-16.0); LYMPHOCYTES % (AUTO) 26.5 %; MEAN CORPUSCULAR HGB CONC 32.1 g/dL (32.0-36.0); MEAN CORPUSCULAR VOLUME 93.4 fL (81.0-99.0); MEAN PLATELET VOLUME 10.7 fL (7.9-10.8); MONOCYTES # (AUTO) 0.6 10^3/uL (0.0-1.0); MONOCYTES % (AUTO) 7.8 %; NEUTROPHILS # (AUTO) 4.4 10^3/uL (1.5-6.6); NEUTROPHILS % (AUTO) 59.7 %; PLT - PLATELET COUNT 283 10^3/uL (130-450); RED BLOOD COUNT 4.07 10^6/uL (4.20-5.40); RED CELL DISTRIBUTION WIDTH 12.4 % (12.0-15.0); WHITE BLOOD COUNT 7.4 x10^3/uL (4.8-10.8)
[2021-02-19 18:52] LABS: THYROID STIMULATING HORMONE 1.17 uIU/mL (0.34-5.60)
[2021-02-19 18:58] LABS: FERRITIN 70.7 ng/mL (11.0-306.8)
[2021-02-19 19:12] LABS: % IRON SATURATION 28 % (20-50); ALBUMIN 4.1 g/dL (3.2-5.5); ALBUMIN/GLOBULIN RATIO 1.3 (1.0-2.2); ALKALINE PHOSPHATASE 54 IU/L (42-121); ALT ALANINE AMINOTRANSFERASE 22 IU/L (10-60); AST ASPARTATE AMINOTRANSFERASE 18 IU/L (10-42); BILIRUBIN,TOTAL 0.9 mg/dL (0.2-1.0); BUN - BLOOD UREA NITROGEN 19 mg/dL (6-20); CALCIUM 9.5 mg/dL (8.5-10.3); CARBON DIOXIDE - CO2 26 mmol/L (21-32); CHLORIDE 104 mmol/L (101-111); CHOL/HDL RATIO 4.9 (<4.4); CHOLESTEROL 219 mg/dL; CREATININE 0.7 mg/dL (0.4-1.0); GFR - MDRD 85 (>89); GLUCOSE 96 mg/dL (70-100); HDL CHOLESTEROL 45 mg/dL; IRON 91 ug/dL (28-170); LDL CHOLESTEROL,CALCULATED 136 mg/dL; POTASSIUM 4.4 mmol/L (3.5-5.0); SODIUM 139 mmol/L (135-145); TOTAL IRON BINDING CAPACITY 330 ug/dL (250-450); TOTAL PROTEIN 7.2 g/dL (6.7-8.2); TRANSFERRIN 236 mg/dL (192-382); TRIGLYCERIDES 188 mg/dL; VLDL CHOLESTEROL 38 mg/dL
== END 2021-02-19 23:59 | disposition home or self-care (01) ==
LOC: LAB.WCP 11:37
PROVIDERS: ATTEND Nurse Practitioner Family
DX: I10 Essential (primary) hypertension (principal); D50.9 Iron deficiency anemia, unspecified; E03.9 Hypothyroidism, unspecified
CPT/HCPCS: 36415; 80050; 80061; 82728; 83540; 83721; 84466

== ENCOUNTER 2021-04-28 14:19 | Outpatient (CLI) | payer MEDICAID ==
--- NOTE | 2021-04-28 16:48 | SLEEP CARE CONSULTATION ---
Information from patient questionnaire entered by Jeanine Faith. I have reviewed and concur with the information entered by Jeanine Faith. This document represents the service I personally performed and the decisions made by me, Eric Holt MD, [facility]. History of Present Illness Service Date and Time: 04/28/2021 1419 Previous diagnosis: Mild, Obstructive Sleep Apnea-Hypopnea Syndrome AHI: 12.2 Reason for follow up: annual (last seen 07/2019) Equipment type: CPAP Equipment obtained from: [employer] Mask style: Full face Prior sleep studies: Yes HPI additional information: HPI: Ms. Guerrero returned today for follow up of nasal CPAP therapy. She was diagnosed to have mild obstructive sleep apnea-hypopnea syndrome. The patient went to [facility] for the equipment and was fitted with a [employer] AmaraView full face mask.. She reports using the device nightly and all through the night. The compliance report shows usage in 180 nights out of the past 180 nights, averaging 10.3 hours a night. She complained of no particular problem with the device such as soreness on the face, dry nose, epistaxis, nasal congestion or headache. She thinks that the pressure of 9 cmH2O is comfortable. On the CPAP therapy she notices improvement in her sleep quality, and that she wakes up feeling fresher in the morning and more awake/alert during the day. The Luttrell Sleepiness Scale score 4. The average residual AHI is 1.0 : and air leak, 1 minute a night. Sleep Study - Results Prior sleep studies: Yes CPAP Compliance Data - Data Reviewed with Patient Average duration of nightly device use: 10 hr 17 min Compliance rate %: 100 (180 days) Current pressure setting (cmH2O): 9 Humidity settin Heated hose settin Average residual AHI: 1.0 Average large leak: 1 min 21 sec Subjective Patient concerns: reports: nasal congestion (sometimes), dry mouth, nose, throat Current pressure setting perceived as: comfortable Initial Lut[place]ll Sleepiness Scale score: 5 (in 2019) Current Luttrell Sleepiness Scale score: 4 Allergies and Home Medications Drug allergies reviewed: Yes Home medication list reviewed: Yes Review of Systems Review of systems same as previous: Yes Physical Exam Height: 5 ft 5.75 in Weight: 290 lb Body Mass Index: 47.1 BMI Classification: Morbidly Obese Impression and Plan IMPRESSION: 1. Obstructive Sleep Apnea-Hypopnea Syndrome, mild, with the patient doing well on nasal CPAP therapy. She has excellent compliance and significant clinical improvement. The current pressure appears effective and comfortable. Overall, she is very satisfied with treatment and plans to continue with it long-term. No adjustment is necessary today. PLAN: 1. Continue with nasal CPAP therapy with 9 cmH2O. 2. Try to lose weight 3. Try other masks and nasal pillows. 4. Return in one year for follow up or earlier if there is any problem with the treatment. If she moves to [place], she should herself a new sleep physician there. Follow up recommended for: Weight management Visit Type: In Office Time Spent with Patient (minutes): 15 Provider Statement: I spent 100% of the Face to Face Visit with the patient with greater than 50% spent counseling the patient and coordination of care.
== END 2021-04-28 14:20 | disposition home or self-care (01) ==
LOC: SC 14:19
PROVIDERS: ATTEND Internal Medicine Pulmonary Disease
DX: G47.33 Obstructive sleep apnea (adult) (pediatric) (principal); E66.01 Morbid (severe) obesity due to excess calories; Z68.42 Body mass index [BMI] 45.0-49.9, adult
CPT/HCPCS: 99212